=== PATIENT | female | born 1970 | race African-American/Black ===

== ENCOUNTER → 2017-08-24 | Outpatient (REF) | payer OTHER | LOC: M SFHCLERA 09:42 | PROVIDERS: ATTEND Nurse Practitioner Family | DX: S51.852A Open bite of left forearm, initial encounter (principal); X58.XXXA Exposure to other specified factors, initial encounter; Y92.9 Unspecified place or not applicable | CPT/HCPCS: 86705; 86709; 86803; 87340; 90715; G0463 ==

== ENCOUNTER → 2019-05-22 | Outpatient (CLI) | payer OTHER ==
[~2019-05-22] MED LIST: FERR325T18 PO; GASTROGRAFIN SOLUTION 30ML (Q9963) As Ordered ONE; ISOVUE-370 76% 100ML VIAL (Q9967) As Ordered ONE; VITA1CAP25 PO; VITA500C19 PO
--- NOTE | 2019-05-22 15:00 | REP ---
Clinical: Uterine mass. Technique: Axial contrast enhanced images from the lung bases to the pubic symphysis with coronal and sagittal re-formations. Findings: Heterogeneous enlarged myomatous uterus measures greater than 19.7 x 8.8 x 16.3 cm and extends significantly above the level of the umbilicus with associated mass effect. Liver demonstrates subcentimeter hypodensities similar to findings on prior MRI and consistent with small hepatic cysts. Spleen, pancreas, gallbladder, bilateral adrenal glands and kidneys are normal. No hydronephrosis. The enteric system is without obstruction or acute inflammatory process. Colonic fecal stasis is suggested. Pelvis demonstrates normal bladder. No ascites. No free air. No adenopathy. Abdominal aorta and vasculature normal. Musculoskeletal structures are intact. Lung bases are clear. Impression: 1. Severely enlarged heterogeneous myomatous uterus. Electronically Signed by Mainor Hagen MD 05/22/2019 02:51 P
== END ==
LOC: M RAD 12:51
PROVIDERS: ATTEND Internal Medicine Hematology & Oncology
DX: D72.819 Decreased white blood cell count, unspecified (principal); N85.2 Hypertrophy of uterus
CPT/HCPCS: 74177; Q9963; Q9967

== ENCOUNTER → 2019-08-04 | Outpatient (POV) | payer OTHER ==
[~2019-08-04] VITALS: Ht 165.1 cm; Wt 65.9 kg
[~2019-08-04] MED LIST changes: -GASTROGRAFIN SOLUTION 30ML (Q9963) As Ordered ONE; -ISOVUE-370 76% 100ML VIAL (Q9967) As Ordered ONE
[2019-08-04 15:10] VITALS: BP 125/77
--- NOTE | 2019-08-05 12:00 | IRCOV ---
[facility] IR Consult Office Visit IR Consult Office Visit DATE: Aug 05, 2019 REASON FOR CONSULTATION/CHIEF COMPLAINT: Uterine fibroid. REFERRING PHYSICIAN: Dr. Jones BEATER ROOM SUPERVISOR HISTORY OF PRESENT ILLNESS: 49-year-old female with uterine fibroids. Describes prior history of heavy bleeding but less heavy now. 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 Mild cramping with menstruation but this does not bother her much. She does wear pads for urinary leaking and she feels her bladder cannot hold us much urine and she suffers with urgency. No prior pregnancies. Was on progesterone therapy in the past to control bleeding but aborted that therapy due to premenopausal symptoms. Patient describes recent hot flashes and perimenopausal symptoms. She is bothered by the appearance of the fibroids which is noticeable through clothing. She is otherwise fit and healthy. Reports prior Pap smears were normal. ALLERGIES: Please see below. HOME MEDICATIONS: Please see below. PAST MEDICAL HISTORY: Alopecia PAST SURGICAL HISTORY: Non relevant FAMILY HISTORY: No family history of fibroids. SOCIAL HISTORY: Nonsmoker. Occasional alcohol no drugs. REVIEW OF SYSTEMS: Otherwise negative PHYSICAL EXAMINATION: VITAL SIGNS: Please see below. GENERAL APPEARANCE: Appears well. Comfortable at rest. HEENT: No scleral icterus. RESPIRATORY: Normal breathing at rest. Symmetric breath sounds. CARDIOVASCULAR: Normal rate. ABDOMEN: Palpable nontender fibroid to above the umbilicus. Soft nontender no rebound or guarding. EXTREMITIES: No pedal edema. NEUROLOGICAL: Alert and oriented. PSYCHIATRIC: Appropriate to circumstance. LABORATORY DATA: 05/06/2019 hemoglobin 12 hematocrit 36.2 WBC 3.3 platelets 277 sodium 139 potassium 4.0 BUN 23 creatinine 0.9 total bilirubin 0.4 AST 24 ALP 28 ALP 46 Imaging: I personally reviewed the CT scan with contrast from May 2019. Enlarged fibroid uterus extending to the epigastric region. Mass effect on adjacent bowel and bladder. Enlarged bilateral uterine arteries. Dystrophic calcifications within the fibroids. ASSESSMENT/PLAN: 49-year-old female with large fibroid uterus causing bladder compression symptoms but no significant menorrhagia or cramping. We discussed options of uterine fibroid embolization including risks and benefits. Patient feels that she may be close to undergoing menopause and as post-menopause fibroids are expected to shrink, she would rather wait several years for these fibroids to shrink. I answered all her questions and concerns and she is welcome to call us back, should she change her mind about fibroid embolization. I spent 30 minutes in consultation with the patient. Thank you for this referral. CC Dr. Jones BEATER ROOM SUPERVISOR Allergies Coded Allergies: No Known Allergies (Unverified , 05/06/19) Home Medications Scheduled Ascorbic Acid (Vitamin C), 500 MG PO DAILY, (Reported) Cholecalciferol (Vitamin D3) (Vitamin D3), 50,000 UNIT PO QWEEK, (Reported) Ferrous Sulfate (Ferrous Sulfate), 325 MG PO PRN, (Reported) VS, I&O, 24H, Fishbone Vital Signs/I&O Vital Signs Date Time Temp Pulse Resp B/P (MAP) Pulse Ox O2 Delivery O2 Flow Rate FiO2 08/04/19 15:10 97.9 56 16 125/77 (93) 99 Room Air CATE ORLANDO MD Aug 05, 2019 12:00
== END ==
LOC: M IRPOV 15:07
PROVIDERS: ATTEND Radiology Diagnostic Radiology
DX: D25.9 Leiomyoma of uterus, unspecified (principal); D64.9 Anemia, unspecified; L63.9 Alopecia areata, unspecified

== ENCOUNTER → 2020-01-07 | Outpatient (CLI) | payer OTHER ==
[~2020-01-07] MED LIST changes: +GASTROGRAFIN SOLUTION 30ML (Q9963) As Ordered ONE; +ISOVUE-370 76% 100ML VIAL As Ordered ONE
--- NOTE | 2020-01-08 03:08 | REP ---
Clinical: Pelvic mass/uterine fibroid. Technique: Axial contrast enhanced images from the lung bases to the pubic symphysis using oral (per protocol) and 100 ml Isovue 370 intravenous contrast material coronal and sagittal re-formations as well as delayed images of the abdomen. Findings: Heterogeneous degenerating large uterine fibroid extends into the mid abdomen at the level of the L2-3 disc space and renal hilum measuring approximately 18.2 x 15.0 x 10.4 cm. Smaller fibroids in the uterus are also identified. The ovaries are not clearly identified due to surrounding mass effect. The enlarged uterus causes mass effect and displacement of the small and large bowel, but without obstruction. No ascites or adenopathy is appreciated. Liver, spleen, pancreas, gallbladder, bilateral adrenal glands and kidneys are normal. Incidental hepatic hypodensities up to 4 mm identified within the liver and likely represent small cysts. The enteric system is without obstruction or acute inflammatory process. Further evaluation of the pelvis demonstrates normal bladder. Abdominal aorta and vasculature appear normal. Musculoskeletal structures are intact. Lung bases are clear. Impression: Significantly enlarged myomatous uterus with 18 cm complex degenerating fibroid and smaller myomatous changes noted. Electronically Signed by Mainor Hagen MD 01/08/2020 02:59 A
== END ==
LOC: M RAD 09:21
PROVIDERS: ATTEND Internal Medicine Gastroenterology
DX: N85.2 Hypertrophy of uterus (principal); N85.8 Other specified noninflammatory disorders of uterus
CPT/HCPCS: 74177; Q9963; Q9967

== ENCOUNTER → 2020-03-04 | Outpatient (CLI) | payer OTHER ==
[~2020-03-04] MED LIST changes: -GASTROGRAFIN SOLUTION 30ML (Q9963) As Ordered ONE; -ISOVUE-370 76% 100ML VIAL As Ordered ONE
--- NOTE | 2020-03-07 09:22 | REPMRS ---
Patient History The patient states she had a clinical breast exam in September 2019. Patient is nulliparous. Family history of unknown cancer at age 63 in mother, unknown cancer at age 63 in maternal grandmother. 3D TOMOSYNTHESIS WAS PERFORMED. The Sweta Mora lifetime risk for breast cancer is 12.1%. Digital Woman Screen Mammo: March 04, 2020 - Exam #: [id number] Bilateral CC and MLO view(s) were taken. Technologist: Aarti Clark, Technologist Prior study comparison: May 12, 2013, bilateral bilat screen digital mammo, performed at [facility] ([facility]). August 19, 2012, bilateral bilat screen digital mammo, performed at [facility]. FINDINGS: The breast tissue is heterogeneously dense. This may lower the sensitivity of mammography. There has been no change in the appearance of the mammogram from the prior studies. There is a moderate amount of residual fibroglandular tissue which is fairly symmetric. There is no interval development of dominant mass, areas of architectural distortion, or clustered microcalcification typical of malignancy. Assessment: BI-RADS/ACR category 1 mammogram. Negative Mammogram. Recommendation Routine screening mammogram in 1 year (for women over age 40). This mammogram was interpreted with the aid of an FDA-approved computer-aided dectection system. Electronically Signed By: Prosper Srinivasan MD 03/07/20 0922
== END ==
LOC: M WHC 13:43
PROVIDERS: ATTEND Internal Medicine
DX: Z12.31 Encounter for screening mammogram for malignant neoplasm of breast (principal); Z80.9 Family history of malignant neoplasm, unspecified

== ENCOUNTER 2020-12-23 10:26 | Day surgery (SDC) | payer OTHER ==
[~2020-12-23] VITALS: Ht 165.1 cm; Wt 67.9 kg
[~2020-12-23 10:26] MED LIST changes: +LIDOCAINE 2% 100MG/5ML SDV (FOR ANES.) As Ordered ONE; +NS 1,000 ML IV ONE; +fentaNYL 100 MCG/2 ML INJECTION (J3010) As Ordered ONE; +propofoL 500 MG/50 ML VIAL As Ordered ONE
--- NOTE | 2020-12-23 12:33 | ROOR ---
Patient Name: Jami Jimenez Procedure Date: 12/23/2020 11:30 AM Date of : 1970 Age: 50 Room: [facility] Gender: Female Note Status: Finalized Procedure: Upper GI endoscopy Indications: Dyspepsia Providers: Spencer Mensah MD Referring MD: GENEVA BEAN MD Requesting Provider: Medicines: Monitored Anesthesia Care Complications: No immediate complications. Procedure: Pre-Anesthesia Assessment: - Prior to the procedure, a History and Physical was performed, and patient medications and allergies were reviewed. The patient is competent. The risks and benefits of the procedure and the sedation options and risks were discussed with the patient. All questions were answered and informed consent was obtained. Patient identification and proposed procedure were verified by the physician, the nurse and the anesthesiologist in the procedure room. Mental Status Examination: normal. Airway Examination: normal oropharyngeal airway and neck mobility. Respiratory Examination: clear to auscultation. CV Examination: normal. Prophylactic Antibiotics: The patient does not require prophylactic antibiotics. Prior Anticoagulants: The patient has taken no previous anticoagulant or antiplatelet agents. ASA Grade Assessment: II - A patient with mild systemic disease. After reviewing the risks and benefits, the patient was deemed in satisfactory condition to undergo the procedure. The anesthesia plan was to use monitored anesthesia care (MAC). Immediately prior to administration of medications, the patient was re-assessed for adequacy to receive sedatives. The heart rate, respiratory rate, oxygen saturations, blood pressure, adequacy of pulmonary ventilation, and response to care were monitored throughout the procedure. The physical status of the patient was re-assessed after the procedure. The Endoscope was introduced through the mouth, and advanced to the second part of duodenum. The upper GI endoscopy was accomplished without difficulty. The patient tolerated the procedure well. Findings: The Z-line was regular and was found 38 cm from the incisors. The examined esophagus was normal. Scattered mild inflammation characterized by erythema and granularity was found in the gastric body and in the gastric antrum. Biopsies were taken with a cold forceps for Helicobacter pylori testing. Verification of patient identification for the specimen was done by the physician and nurse using the patient's name, date and medical record number. Estimated blood loss was minimal. The duodenal bulb and second portion of the duodenum were normal. Impression: - Z-line regular, 38 cm from the incisors. - Normal esophagus. - Gastritis. Biopsied. - Normal duodenal bulb and second portion of the duodenum. Recommendation: - Patient has a contact number available for emergencies. The signs and symptoms of potential delayed complications were discussed with the patient. Return to normal activities tomorrow. Written discharge instructions were provided to the patient. - High fiber diet. - Continue present medications. - Await pathology results. - Telephone GI clinic for pathology results in 2 weeks. - Return to primary care physician. Procedure Code(s): --- Professional --- 72762, Esophagogastroduodenoscopy, flexible, transoral; with biopsy, single or multiple Diagnosis Code(s): --- Professional --- K29.70, Gastritis, unspecified, without bleeding R10.13, Epigastric pain CPT copyright 2019 [employer]. All rights reserved. The codes documented in this report are preliminary and upon concrete vault maker review may be revised to meet current compliance requirements. Spencer Mensah MD Spencer Mensah MD 12/23/2020 12:33:22 PM Electronically signed by Spencer Mensah MD Number of Addenda: 0 Note Initiated On: 12/23/2020 11:30 AM Estimated Blood Loss: Estimated blood loss was minimal.
--- NOTE | 2020-12-23 12:36 | ROOR ---
Patient Name: Jami Jimenez Procedure Date: 12/23/2020 11:30 AM Date of : 1970 Age: 50 Room: [facility] Gender: Female Note Status: Finalized Procedure: Colonoscopy Indications: Screening for colorectal malignant neoplasm Providers: Spencer Mensah MD Referring MD: GENEVA BEAN MD Requesting Provider: Medicines: Monitored Anesthesia Care Complications: No immediate complications. Procedure: Pre-Anesthesia Assessment: - Prior to the procedure, a History and Physical was performed, and patient medications and allergies were reviewed. The patient is competent. The risks and benefits of the procedure and the sedation options and risks were discussed with the patient. All questions were answered and informed consent was obtained. Patient identification and proposed procedure were verified by the physician, the nurse and the anesthesiologist in the procedure room. Mental Status Examination: alert and oriented. Airway Examination: normal oropharyngeal airway and neck mobility. Respiratory Examination: clear to auscultation. CV Examination: normal. Prophylactic Antibiotics: The patient does not require prophylactic antibiotics. Prior Anticoagulants: The patient has taken no previous anticoagulant or antiplatelet agents. ASA Grade Assessment: II - A patient with mild systemic disease. After reviewing the risks and benefits, the patient was deemed in satisfactory condition to undergo the procedure. The anesthesia plan was to use monitored anesthesia care (MAC). Immediately prior to administration of medications, the patient was re-assessed for adequacy to receive sedatives. The heart rate, respiratory rate, oxygen saturations, blood pressure, adequacy of pulmonary ventilation, and response to care were monitored throughout the procedure. The physical status of the patient was re-assessed after the procedure. The Colonoscope was introduced through the anus and advanced to the terminal ileum, with identification of the appendiceal orifice and IC valve. The colonoscopy was performed without difficulty. The patient tolerated the procedure well. The quality of the bowel preparation was good. The terminal ileum, ileocecal valve, appendiceal orifice, and rectum were photographed. Scope insertion time was 2 minutes. Scope withdrawal time was 10 minutes. The total duration of the procedure was 12 minutes. Findings: The perianal and digital rectal examinations were normal. The terminal ileum appeared normal. A 3 mm polyp was found in the descending colon. The polyp was sessile. The polyp was removed with a cold biopsy forceps. Resection and retrieval were complete. Verification of patient identification for the specimen was done by the physician and nurse using the patient's name, date and medical record number. Estimated blood loss was minimal. Non-bleeding external and internal hemorrhoids were found during retroflexion. The hemorrhoids were medium-sized. Impression: - The examined portion of the ileum was normal. - One 3 mm polyp in the descending colon, removed with a cold biopsy forceps. Resected and retrieved. - Non-bleeding external and internal hemorrhoids. Recommendation: - Patient has a contact number available for emergencies. The signs and symptoms of potential delayed complications were discussed with the patient. Return to normal activities tomorrow. Written discharge instructions were provided to the patient. - High fiber diet. - Continue present medications. - Use fiber, for example Citrucel, Fibercon, Konsyl or Metamucil. - Await pathology results. - Repeat colonoscopy in 5-10 years for surveillance based on pathology results. - Telephone GI clinic for pathology results in 2 weeks. - Return to primary care physician. Procedure Code(s): --- Professional --- 05505, Colonoscopy, flexible; with biopsy, single or multiple Diagnosis Code(s): --- Professional --- Z12.11, Encounter for screening for malignant neoplasm of colon K64.8, Other hemorrhoids K63.5, Polyp of colon CPT copyright 2019 [employer]. All rights reserved. The codes documented in this report are preliminary and upon automation test developer review may be revised to meet current compliance requirements. Spencer Mensah MD Spencer Mensah MD 12/23/2020 12:36:16 PM Electronically signed by Spencer Mensah MD Number of Addenda: 0 Note Initiated On: 12/23/2020 11:30 AM Estimated Blood Loss: Estimated blood loss was minimal.
[2020-12-23 13:10] VITALS: BP 131/64
== END 2020-12-23 13:20 | disposition home or self-care (01) ==
LOC: M OPP 10:26
PROVIDERS: ATTEND Internal Medicine Gastroenterology
DX: Z12.11 Encounter for screening for malignant neoplasm of colon (principal); D12.6 Benign neoplasm of colon, unspecified; K64.8 Other hemorrhoids; R10.13 Epigastric pain; K29.70 Gastritis, unspecified, without bleeding
CPT/HCPCS: 43239; 45380; 88305; 88342; J3010